=== PATIENT | female | born 1975 | race Caucasian/White ===

== ENCOUNTER → 2018-04-04 09:16 | Outpatient (CLI) | payer OTHER, SELFPAY ==
[2018-04-05 08:18] LABS: Strep Grp B PCR NEG for Grp B Strep
== END ==
PROVIDERS: PCP Family Medicine
DX: Z34.03 Encounter for supervision of normal first pregnancy, third trimester (principal); Z3A.36 36 weeks gestation of pregnancy
CPT/HCPCS: 87653

== ENCOUNTER 2018-04-12 12:19 | Outpatient (CLI) | payer OTHER, SELFPAY ==
[2018-04-12 12:56] LABS: Add Manual Diff / Slide Review NO; Basophils Percent Auto 0.7 % (0-2); Eosinophils Percent Auto 0.8 % (2-4); Hematocrit 36.7 % (36-46); Hemoglobin 12.2 g/dL (12.0-16.0); Lymphocytes Percent Auto 21.4 % (25-40); Mean Corpuscular HGB Conc 33.4 % (30-36); Mean Corpuscular Hemoglobin 31.3 PG (26-34); Mean Corpuscular Volume 93.7 fL (80-100); Monocytes Percent Auto 7.1 % (3-14); Neutrophils Absolute Auto 6300 /uL (3000-5900); Platelet Count 224 X10^3/uL (150-400); Red Blood Cell Count 3.91 X10^6/uL (4.0-5.2); Red Cell Distribution Width 14.3 % (11.6-14.8)
[2018-04-12 13:12] LABS: Alanine Aminotransferase 19 IU/L (9-52); Albumin 3.5 g/dL (3.5-5.0); Albumin Globulin Ratio 1.3 (1.0-2.8); Alkaline Phosphatase 160 U/L (38-126); Aspartate Aminotransferase 20 IU/L (14-36); BUN Creatinine Ratio 23.3 (6-22); Bilirubin Total 0.3 mg/dL (0.2-1.3); Blood Urea Nitrogen 14 mg/dL (7-17); Calcium 9.3 mg/dL (8.4-10.2); Carbon Dioxide 25 mmol/L (22-32); Chloride 103 mmol/L (98-107); Estimated Glomerular Filt Rate > 60.0 mL/min (>60); Globulin 2.8 g/dL (1.7-4.1); Glucose 118 mg/dL (70-100); HEMOLYSIS < 15 (0-50); Potassium 3.7 mmol/L (3.4-5.1); Sodium 136 mmol/L (137-145); Total Protein 6.3 g/dL (6.3-8.2); Uric Acid 5.2 mg/dL (2.5-6.2)
--- NOTE | 2018-04-12 13:18 | PM.OBTRLD ---
Visit Information Visit Information Date of evaluation: 04/12/18 Primary OB Provider: Shanae Valdivia Reason for Evaluation: Yes non-stress test and Yes other Comments/Additional reasons for admission: Advanced maternal age, gestational diabetes, rule out preeclampsia Vital Signs Vital Signs: Blood pressure 109/70, pulse is 74 PFSH Medical History IBS (irritable bowel syndrome) (Acute ~2004) Acne (Chronic ~2015) Carpal tunnel syndrome (Chronic ~2010) Chronic back pain (Chronic ~1992) Migraines (Chronic ~1985) Ovarian cyst (Chronic ~1991) Peptic ulcer disease (Chronic ~1992) Psoriasis (Chronic ~2016) Rosacea (Chronic ~2016) Chickenpox (Resolved ~1975) Surgical History History of foot surgery (Resolved) History of lymph node excision (Resolved ~1992) Anesthesia (Inactive) History of carpal tunnel repair (~2010) Status post appendectomy (~2004) Status post breast lumpectomy (~2005) Status post dilation and curettage (~2015) Family History Father Age: 76 High cholesterol Clogged artery (heart) Grandmother Hypertension Grandfather Cancer Sister Age: 47 Bulimia Grandfather No problems noted. Grandmother No problems noted. Social History household members: spouse pets and animals: Yes (Cat,) education level: college tiffany/sikh: Jainism seatbelt use: always working smoke detector in home: Yes fire extinguisher in home: Yes carbon monox detector in home: Yes firearms in home: No Smoking Status: Former smoker alcohol intake: current substance use type: does not use during the past year weight has: other well-balanced diet: daily or most days caffeine: Yes (1-2 caffeine drinks per day) eating out: rarely or never frequency: daily duration: 45-60 minutes/day Review of Systems Review of Systems Patient has been complaining of some intermittent scotomata. No headaches. Good movement, no rupture membranes, no regular contractions. All systems reviewed & are unremarkable except as noted in HPI and below Objective Labs Result Diagrams: 04/12/18 12:46 04/12/18 12:46 Labs: Laboratory Results - last 24 hr 04/12/18 04/12/18 12:46 12:46 WBC 9.0 RBC 3.91 L Hgb 12.2 Hct 36.7 MCV 93.7 MCH 31.3 MCHC 33.4 RDW 14.3 Plt Count 224 Neut % (Auto) 70.0 Lymph % (Auto) 21.4 L [place] % (Auto) 7.1 Eos % (Auto) 0.8 L Baso % (Auto) 0.7 Neut # (Auto) 6300 H Sodium 136 L Potassium 3.7 Chloride 103 Carbon Dioxide 25 BUN 14 Creatinine 0.60 Estimated GFR > 60.0 BUN/Creatinine Ratio 23.3 H Glucose 118 H Uric Acid 5.2 Calcium 9.3 Total Bilirubin 0.3 Conjugated Bilirubin 0.0 Unconjugated Bilirubin 0.0 AST 20 ALT 19 Alkaline Phosphatase 160 H Total Protein 6.3 Albumin 3.5 Globulin 2.8 Albumin/Globulin Ratio 1.3 Evaluation Evaluation Baseline heart rate: 130 Variability: Moderate (11-25) monitor accelerations: Present monitor decelerations: Absent Category of Tracing: I Cervical dilation (cm): 0 Laboratory results: Laboratory Tests 04/12/18 04/12/18 12:46 12:46 WBC 9.0 RBC 3.91 L Hgb 12.2 Hct 36.7 MCV 93.7 MCH 31.3 MCHC 33.4 RDW 14.3 Plt Count 224 Neut % (Auto) 70.0 Lymph % (Auto) 21.4 L [place] % (Auto) 7.1 Eos % (Auto) 0.8 L Baso % (Auto) 0.7 Neut # (Auto) 6300 H Sodium 136 L Potassium 3.7 Chloride 103 Carbon Dioxide 25 BUN 14 Creatinine 0.60 Estimated GFR > 60.0 BUN/Creatinine Ratio 23.3 H Glucose 118 H Uric Acid 5.2 Calcium 9.3 Total Bilirubin 0.3 Conjugated Bilirubin 0.0 Unconjugated Bilirubin 0.0 AST 20 ALT 19 Alkaline Phosphatase 160 H Total Protein 6.3 Albumin 3.5 Globulin 2.8 Albumin/Globulin Ratio 1.3 Diagnosis, Plan/Disposition Final Diagnosis (1) 37 weeks gestation of : Current Visit: Yes Status: Acute (2) Advanced maternal age (AMA), 40 years or greater: Current Visit: Yes Status: Acute (3) Gestational diabetes mellitus (GDM): Current Visit: Yes Status: Acute Plan/Disposition Plan: Reactive nonstress test, trace proteinuria, PIH labs within normal limits except for slightly elevated alkaline phosphatase at 160U/L. Patient was discharged home with precautions. She has an appointment in 1 week and induction scheduled on 04/22/2018
== END 2018-04-12 13:25 | disposition home or self-care (01) ==
LOC: LABOR 12:57 → OB 16:55
PROVIDERS: PCP Family Medicine; Visit Provider Specialist
DX: Z3A.37 37 weeks gestation of pregnancy (principal); O24.419 Gestational diabetes mellitus in pregnancy, unspecified control
CPT/HCPCS: 36415; 59025; 80053; 80076; 84550; 85025; G0378; G0379

== ENCOUNTER 2018-04-22 19:30 | Inpatient (IN) | payer OTHER, SELFPAY ==
--- NOTE | 2018-04-22 20:22 | P.HPOB_ITS ---
OB HPI Date/Time Date of admission: 04/22/18 Date Patient Seen: 04/22/18 Time Patient Seen: 20:20 History of Present Condition Chief complaint: eval of labor : 3 Para: 0 Estimated Date of Delivery: 04/28/18 Estimated Gestational Age (weeks): 39 Narrative: Trudi Ceja is a 42 year old female here for induction for term advanced maternal age and gestational diabetes diet controlled Indications Indication for induction OB: medical complication (Gestational diabetes, advanced maternal age) History of Present care: good care, initiated at week # (10), number of visits (11) and pounds weight gain (21) Dating criteria: LMP confirmed by 1st trimester US Ultrasounds: normal mid trimester US Obstetrical complications: gestational diabetes (Diet controlled) Medical complications: none Preadmission Labs Blood type: O (+) positive -: Antibody screen: negative, GBS status: negative, HBsAG: negative, HIV: negative, HSV 1: negative, HSV 2: negative and RPR/VDLR: negative -: Rubella: immune HCAB: negative Cell-free DNA: Normal, normal AFP 1 hr GTT: 180 3 hr GTT: 1 hr (183) Fasting blood glucose: 97 Evaluation Evaluation Baseline heart rate: 145 Variability: Moderate (11-25) monitor accelerations: Present monitor decelerations: Absent Contraction Frequency (minutes): 15 Uterine Contraction Intensity: Mild Category of Tracing: I Cervical dilation (cm): 0 Cervical effacement (%): 0 station: -4 PFSH Medical History IBS (irritable bowel syndrome) (Acute ~2004) Acne (Chronic ~2015) Carpal tunnel syndrome (Chronic ~2010) Chronic back pain (Chronic ~1992) Migraines (Chronic ~1985) Ovarian cyst (Chronic ~1991) Peptic ulcer disease (Chronic ~1992) Psoriasis (Chronic ~2016) Rosacea (Chronic ~2016) Chickenpox (Resolved ~1975) Surgical History History of foot surgery (Resolved) History of lymph node excision (Resolved ~1992) Anesthesia (Inactive) History of carpal tunnel repair (~2010) Status post appendectomy (~2004) Status post breast lumpectomy (~2005) Status post dilation and curettage (~2015) Family History Father Age: 76 High cholesterol Clogged artery (heart) Grandmother Hypertension Grandfather Cancer Sister Age: 47 Bulimia Grandfather No problems noted. Grandmother No problems noted. Social History household members: spouse pets and animals: Yes (Cat,) education level: college tiffany/restorationist: Judaism seatbelt use: always working smoke detector in home: Yes fire extinguisher in home: Yes carbon monox detector in home: Yes firearms in home: No Smoking Status: Former smoker alcohol intake: current substance use type: does not use during the past year weight has: other well-balanced diet: daily or most days caffeine: Yes (1-2 caffeine drinks per day) eating out: rarely or never frequency: daily duration: 45-60 minutes/day Meds Home Medications Medication Instructions Recorded Confirmed Type omeprazole 40 mg capsule,delayed 40 mg PO DAILY PRN #30 cap 10/25/17 Rx release blood sugar diagnostic strips #120 each 02/22/18 Rx blood-glucose meter kit #1 each 02/22/18 Rx lancets #120 each 02/22/18 Rx Allergies Allergy/AdvReac Type Severity Reaction Status Date / Time Quinolones [QUINOLONES] Allergy Severe ANAPHYLAXIS Unverified 10/04/17 12:36 codeine [CODEINE] Allergy Unknown Unverified 10/04/17 12:36 Review of Systems Review of Systems Patient denies headaches, scotomata, epigastric pain. She has had good movement. No rupture membranes. No contractions. She is having back pain. All systems reviewed & are unremarkable except as noted in HPI and below Exam Narrative Exam Narrative: HEENT within normal limits. Lungs are clear to auscultation percussion. Heart is regular rate and rhythm no S3-S4 or murmurs. Abdomen is soft, non tender. Gravid. Extremities without edema and are nontender. Estimated Weight (lbs): 8 Assessment and Plan (1) Gestational diabetes mellitus (GDM): Current visit: No Status: Acute (2) Advanced maternal age (AMA), 40 years or greater: Current visit: No Status: Acute (3) 39 weeks gestation of : Current visit: Yes Status: Acute Cytotec followed by Pitocin induction.
[2018-04-22] MEDS: miSOPROStol 25 MCG TABLET VAG (20:30)
[2018-04-22 21:59] VITALS: BP 129/75
[2018-04-22 22:23] LABS: Add Manual Diff / Slide Review NO; Basophils Percent Auto 1.1 % (0-2); Hematocrit 38.2 % (36-46); Mean Corpuscular Hemoglobin 31.9 PG (26-34); Mean Corpuscular Volume 93.6 fL (80-100); Monocytes Percent Auto 7.7 % (3-14); Neutrophils Absolute Auto 5200 /uL (3000-5900); Neutrophils Percent Auto 61.2 % (50-75); Platelet Count 203 X10^3/uL (150-400); Red Blood Cell Count 4.08 X10^6/uL (4.0-5.2); Red Cell Distribution Width 14.3 % (11.6-14.8); White Blood Cell Count 8.4 X10^3/uL (4.5-11.0)
[2018-04-22] MEDS: ZOLPIDEM 5 MG TABLET PO (22:41)
[2018-04-23] MEDS: miSOPROStol 25 MCG TABLET VAG (01:27)
[2018-04-23] MEDS: LACTATED RINGERS 1,000 ML 100 ML IV ×3 (08:21→10:44)
[2018-04-23] MEDS: fentaNYL 100 MCG/2 ML INJ IV (08:45)
[2018-04-23] MEDS: OXYTOCIN PREMIX 30 UNIT/500 ML PLAST..BAG IV (09:46)
--- NOTE | 2018-04-23 15:49 | PM.OBPRVD ---
Delivery date: 04/23/18 Induction method: per pitocin protocol Delivery augmentation: rupture of membranes and pitocin Delivery monitor: external FHT and external uterine Route of delivery: Laceration description: Perineal - 2nd Degree Delivery repair: chromic Estimated blood loss (mL): 200 Anesthesia type: Epidural Complications: None Narrative: The patient is a 42-year-old who was induced this morning with Pitocin. She had a rapid labor and came to complete and pushed for approximately 30 min and delivered spontaneously a live born male with scores eight at 1 min nine at 5 min in good condition. She sustained a second-degree perineal tear. The placenta delivered spontaneously. The cord had three vessels. The estimated blood loss was 200 cc. There were no cervical or vaginal lacerations. The tear was repaired with two 0 chromic suture in the usual fashion Plan for aftercare: Standard care
[2018-04-23] MEDS: IBUPROFEN 600 MG TABLET PO ×2 (18:15→23:57)
[2018-04-23] MEDS: DERMOPLAST SPRAY 20% 60 ML 1 SPRAY TOP (22:10)
[2018-04-23] MEDS: LANOLIN OINT 7 GM 1 APPLIC TOP (22:10)
[2018-04-23 23:57] VITALS: TEMP 36.7
[2018-04-23] MEDS: OXYCODONE/ACETAMINOPHEN 5/325 TABLET 1 TAB PO (23:57)
[2018-04-24 04:22] VITALS: TEMP 36.7
[2018-04-24] MEDS: OXYCODONE/ACETAMINOPHEN 5/325 TABLET 1 TAB PO ×4 (04:22→20:17)
[2018-04-24 05:59] VITALS: TEMP 36.7
[2018-04-24] MEDS: IBUPROFEN 600 MG TABLET PO ×3 (05:59→17:52)
[2018-04-24 07:07] LABS: Hematocrit 32.9 % (36-46); Hemoglobin 11.1 g/dL (12.0-16.0)
[2018-04-24] MEDS: DOCUSATE 250 MG CAPSULE PO (08:41)
[2018-04-24] MEDS: FERROUS GLUCONATE 324 MG TABLET PO (14:17)
--- NOTE | 2018-04-24 17:19 | PM.OBPN.1 ---
Subjective - OB Interval history: Patient is day #1 Vaginal delivery with second-degree tear repaired Patient comments: pain well controlled [place] baby status: doing well feeding status: exclusively breast feeding Date Patient Seen: 04/24/18 Time Patient Seen: 17:20 Exam Vital Signs (past 8 hours): Blood pressure 117/71, pulse 62, temperature 98.3? Narrative Exam Narrative: HEENT exam within normal limits. Lungs are clear to auscultation and percussion. Heart is regular rate and rhythm no S3-S4 or murmurs. Abdomen is soft, nontender. Uterus is firm, at U, nontender. At repair is intact. Mild lochia. Extremities with trace edema and nontender. Objective Labs Result Diagrams: 04/24/18 06:36 Labs: Laboratory Results - last 24 hr 04/24/18 06:36 Hgb 11.1 L Hct 32.9 L Assessment & Plan (1) Gestational diabetes mellitus (GDM): Status: Acute Current Visit: No (2) Advanced maternal age (AMA), 40 years or greater: Status: Acute Current Visit: No (3) 39 weeks gestation of : Status: Acute Current Visit: Yes (4) Vaginal delivery: Status: Acute Assessment and plan: Normal day #1. Doing well. Routine care. Current Visit: Yes Time Spent With Patient Total time spent is greater than 50% in coordination of care (as documented) at patient's floor/unit and/or counseling patient: less than 15 minutes
--- NOTE | 2018-04-24 17:22 | P.PNOB_ITS ---
Subjective - OB Interval history: Patient is day #1 Vaginal delivery with second- degree tear repaired Patient comments: pain well controlled baby status: doing well feeding status: exclusively breast feeding Date Patient Seen: 04/24/18 Time Patient Seen: 17:20 Exam Vital Signs (past 8 hours): Blood pressure 117/71, pulse 62, temperature 98.3? Narrative Exam Narrative: HEENT exam within normal limits. Lungs are clear to auscultation and percussion. Heart is regular rate and rhythm no S3-S4 or murmurs. Abdomen is soft, nontender. Uterus is firm, at U, nontender. At repair is intact. Mild lochia. Extremities with trace edema and nontender. Objective Labs Result Diagrams: 04/24/18 06:36 Labs: Laboratory Results - last 24 hr 04/24/18 06:36 Hgb 11.1 L Hct 32.9 L Assessment & Plan (1) Gestational diabetes mellitus (GDM): Status: Acute Current Visit: No (2) Advanced maternal age (AMA), 40 years or greater: Status: Acute Current Visit: No (3) 39 weeks gestation of : Status: Acute Current Visit: Yes (4) Vaginal delivery: Status: Acute Assessment and plan: Normal day #1. Doing well. Routine care. Current Visit: Yes Time Spent With Patient Total time spent is greater than 50% in coordination of care (as documented) at patient's floor/unit and/or counseling patient: less than 15 minutes
[2018-04-25] MEDS: IBUPROFEN 600 MG TABLET PO (08:38)
[2018-04-25] MEDS: DOCUSATE 250 MG CAPSULE PO (08:39)
[2018-04-25] MEDS: OXYCODONE/ACETAMINOPHEN 5/325 TABLET 1 TAB PO (10:14)
[2018-04-25] MEDS: DERMOPLAST SPRAY 20% 60 ML 1 SPRAY TOP (10:16)
[2018-04-25] MEDS: LANOLIN OINT 7 GM 1 APPLIC TOP (10:16)
--- NOTE | 2018-04-25 13:00 | P.DS_ITS ---
Discharge Providers Date of admission: 04/22/18 19:30 Primary care physician: Stormy Jordan MD Consults: 04/22/18 19:43 Consult to Anesthesiology Urgent Comment: Consulting Provider: Anesthesiologist Reason for consultation: Epidural Has provider been notified: No 04/22/18 19:45 Consult to Anesthesiology Urgent Comment: Consulting Provider: Anesthesiologist Reason for consultation: Epidural Has provider been notified: No 04/23/18 17:24 Consult to Flat Sorter Processor Routine Comment: Discharge provider: Shanae Valdivia MD Discharge Date: 04/25/18 Summary Date Patient Seen: 04/25/18 Time Patient Seen: 10:38 Hospital Course: Patient arrived on Labor and delivery for induction for gestational diabetes at 39 weeks she received Prostin followed by Pitocin. She received an epidural catheter for pain control. She progressed rapidly and delivered spontaneously a viable male infant weighing 7 lb 3 oz, 3280 g. she had a second-degree tear that was repaired. She had no signs or symptoms of preeclampsia. She was breast-feeding without difficulty. She was urinating and ambulatory. Bleeding was mild. Blood pressure 131/78, pulse 64, temperature 98.6? Abdomen is soft, nontender. Uterus is firm, at U, nontender. Repair is intact. Mild lochia. Extremities with trace edema and nontender. Patient's blood type is O positive and she is rubella immune. Peripartum Data Infant Delivery Method: Natural Vaginal Laceration description: Perineal - 2nd Degree Procedures: Prostin followed by Pitocin induction, epidural catheter, vaginal delivery, repair of second-degree tear complications: none Discharge Diagnosis (1) Gestational diabetes mellitus (GDM): Status: Acute (2) Advanced maternal age (AMA), 40 years or greater: Status: Acute (3) 39 weeks gestation of : Status: Acute (4) Vaginal delivery: Status: Acute Status at Discharge Functional status at discharge: independent ambulation Overall status at discharge: patient is progressing back to baseline Time Spent with Patient Total time spent providing and/or coordinating discharge services: Less than 30 minutes Objective Labs Result Diagrams: 04/24/18 06:36 Discharge Plan Discharge Plan Patient Disposition: Home Discharge Med Rec/Prescriptions Prescriptions: New oxycodone-acetaminophen 5-325 mg Tablet 1 tab PO Q4HR Qty: 20 RF: 0 ibuprofen 600 mg Tablet 600 mg PO Q6HR PRN (Reason: As Needed For Fever/Mild Pain) Qty: 30 RF: 0 docusate sodium 250 mg Capsule 250 mg PO DAILY Qty: 20 RF: 0 No Action blood sugar diagnostic [Blood Glucose Test] strip .ROUTE .MEDSUPPLY Qty: 120 RF: 4 lancets [Accu-Chek Softclix Lancets] misc .ROUTE .MEDSUPPLY Qty: 120 RF: 4 blood-glucose meter [Blood Glucose Monitoring] kit .ROUTE .MEDSUPPLY Qty: 1 RF: 0 omeprazole 40 mg capsule,delayed release(DR/EC) 40 mg PO DAILY PRN (Reason: heartburn) Qty: 30 RF: 0 Follow up/Referrals: Stormy Jordan MD [Primary Care Provider] - Shanae Valdivia MD [Physician] - 1 Month (Monday,April at 11:30am Clinic on Monday, at Noon (12:00 noon)) Provider Discharge Instructions Diet: Regular Activity: nothing in vagina for four weeks Skin/Wound/Dressing Care Report to your healthcare provider any signs of infection, such as:: chills, fever, increased pain and unusual drainage Visit Report/Discharge Packet Instructions: DI for Labor and Delivery, Vaginal Visit Report Forms: Stroke Signs & Symptoms Discharge Data Primary Care Provider: Stormy Jordan Attending Provider: Shanae Valdivia Admit Date/Time: 04/22/18 19:30 Discharges patient from system. Discharge Date/Time: 04/25/18 14:23
[2018-04-25 13:11] VITALS: BP 131/78; PULSE 64; RESP 16; TEMP 36.7
== END 2018-04-25 14:23 | disposition home or self-care (01) | DRG 807 ==
PROVIDERS: Admitting Provider Specialist; PCP Family Medicine; Visit Provider Specialist
DX: O24.420 Gestational diabetes mellitus in childbirth, diet controlled (principal); Z37.0 Single live birth; Z3A.39 39 weeks gestation of pregnancy; O70.1 Second degree perineal laceration during delivery
CPT/HCPCS: 01967; 36415; 59050; 59200; 59400; 59409; 85014; 85018; 85025; 86850; 86900; 86901; G0379; J2590; J3010

== ENCOUNTER → 2018-10-16 08:13 | Outpatient (CLI) | payer OTHER, SELFPAY ==
[2018-10-16 09:43] LABS: Glucose Fasting 97 mg/dL (70-100)
[2018-10-16 10:44] LABS: Glucose Tol Interpretation INTERPRETATION
[2018-10-16 11:00] LABS: Glucose 1 Hour 144 mg/dL (70-170)
[2018-10-16 11:25] LABS: Glucose 2 Hour 78 mg/dL (70-140)
== END ==
PROVIDERS: PCP Family Medicine; Visit Provider Specialist
DX: O24.419 Gestational diabetes mellitus in pregnancy, unspecified control (principal)
CPT/HCPCS: 36415; 82951; 82952

== ENCOUNTER → 2020-02-18 17:04 | Outpatient (CLI) | payer OTHER, SELFPAY ==
--- NOTE | 2020-02-18 17:23 | DI.MG.S_ITS ---
Patient Name: BREANN COHN date: 1975 Sex: F Attending Physician: Shea Indications: Date: 02/18/2020 17:16 At the request of: BETINA SUMMERS Procedure: MM screening mammo BI BILATERAL DIGITAL SCREENING MAMMOGRAM 3D/2D WITH CAD: 02/18/2020 CLINICAL: Routine screening. Comparison is made to exams dated: 04/06/2017 mammogram [facility] and 10/18/2013 mammogram - [facility]. The tissue of both breasts is heterogeneously dense. This may lower the sensitivity of mammography. Current study was also evaluated with a Computer Aided Detection (CAD) system. No significant masses, calcifications, or other findings are seen in either breast. There has been no significant interval change. IMPRESSION: NEGATIVE There is no mammographic evidence of malignancy. A 1 year screening mammogram is recommended. This exam was interpreted at Station ID: [id number]. NOTE: For mammograms, a report in lay terms will be sent to the patient. Approximately 15% of breast malignancies will not be visualized mammographically. In the management of a palpable breast mass, a negative mammogram must not discourage biopsy of a clinically suspicious lesion. Electronically Signed By: Avelino francisco/josé miguel:02/19/2020 09:03:29 copy to: GENE TERRELL letter sent: Normal Exam ACR BI-RADS Category 1: Negative 3341F
== END ==
PROVIDERS: PCP Family Medicine; Referring Provider Family Medicine; Visit Provider Family Medicine
DX: Z12.31 Encounter for screening mammogram for malignant neoplasm of breast (principal)
CPT/HCPCS: 77063; 77067

== ENCOUNTER → 2020-04-14 14:58 | Outpatient (CLI) | payer OTHER, SELFPAY ==
--- NOTE | 2020-04-14 | DI.MRI.S_ITS ---
PROCEDURE: MR LUMBAR SPINE WO CON INDICATIONS: Lumbago with sciatica, right side TECHNIQUE: Noncontrast sagittal T1 spin echo and T2 fast echo, sagittal STIR, axial T1 and T2 fast spin echo through the lumbar spine. In cases with scoliosis, additional coronal T2 fast spin echo may be performed. COMPARISON: None. FINDINGS: Image quality: Excellent. Alignment and Curvature: There is normal bony alignment. Bone Marrow: Marrow is of normal overall signal. No acute vertebral body compression fractures. Spinal Cord: Conus medullaris terminates at the L1 level. Visualized cord demonstrates normal signal and size. Paraspinous Soft Tissues: No paravertebral masses. T12-L1: No canal stenosis or foraminal stenosis. L1-L2: Minimal disc bulge. No canal stenosis or foraminal stenosis. L2-L3: No canal stenosis or foraminal stenosis. L3-L4: Mild facet hypertrophy. No canal stenosis or foraminal stenosis. L4-L5: Minimal disc bulge. Facet hypertrophy. No canal stenosis or foraminal stenosis. L5-S1: Chronic disc height loss. Posterior disc bulge. Facet hypertrophy. No canal stenosis. [id number] bilateral foraminal stenosis. IMPRESSION: 1. Multilevel facet arthropathy. 2. Multilevel disc bulges. 3. No canal stenosis. 4. Mild to moderate bilateral foraminal stenosis at L5-S1. Dictated by: Raúl Yang M.D. on 04/14/2020 at 16:23 Approved by: Raúl Yang M.D. on 04/14/2020 at 16:28
== END ==
PROVIDERS: PCP Family Medicine; Referring Provider Nurse Practitioner Family; Visit Provider Nurse Practitioner Family
DX: M51.17 Intervertebral disc disorders with radiculopathy, lumbosacral region (principal); M47.26 Other spondylosis with radiculopathy, lumbar region; M47.27 Other spondylosis with radiculopathy, lumbosacral region; M48.07 Spinal stenosis, lumbosacral region
CPT/HCPCS: 72148

== ENCOUNTER → 2021-06-08 10:48 | Outpatient (CLI) | payer OTHER, SELFPAY ==
--- NOTE | 2021-06-08 | DI.MG.S_ITS ---
BILATERAL DIGITAL SCREENING MAMMOGRAM 3D/2D WITH CAD: 06/08/2021 CLINICAL: Routine screening. Comparison is made to exams dated: 02/18/2020 mammogram, 04/06/2017 mammogram - [facility], and 10/18/2013 mammogram - [facility]. The tissue of both breasts is extremely dense, which lowers the sensitivity of mammography. Current study was also evaluated with a Computer Aided Detection (CAD) system. No significant masses, calcifications, or other findings are seen in either breast. There has been no significant interval change. IMPRESSION: NEGATIVE There is no mammographic evidence of malignancy. A 1 year screening mammogram is recommended. This exam was interpreted at Station ID: [id number]. NOTE: For mammograms, a report in lay terms will be sent to the patient. Approximately 15% of breast malignancies will not be visualized mammographically. In the management of a palpable breast mass, a negative mammogram must not discourage biopsy of a clinically suspicious lesion. Electronically Signed By: Eboni jose/josé miguel:06/08/2021 12:27:55 copy to: GENE TERRELL letter sent: Normal Exam ACR BI-RADS Category 1: Negative [id number]
== END ==
PROVIDERS: PCP Family Medicine; Referring Provider Family Medicine; Visit Provider Family Medicine
DX: Z12.31 Encounter for screening mammogram for malignant neoplasm of breast (principal)
CPT/HCPCS: 77063; 77067

== ENCOUNTER → 2022-06-22 10:31 | Outpatient (CLI) | payer OTHER, SELFPAY ==
--- NOTE | 2022-06-22 | DI.MG.S_ITS ---
BILATERAL DIGITAL SCREENING MAMMOGRAM 3D/2D WITH CAD: 06/22/2022 CLINICAL: Routine screening. Comparison is made to exams dated: 06/08/2021 mammogram, 02/18/2020 mammogram, and 04/06/2017 [facility]. Both breasts are extremely dense, which lowers the sensitivity of mammography (category d />75% glandular tissue). Current study was also evaluated with a Computer Aided Detection (CAD) system. No significant masses, calcifications, or other findings are seen in either breast. There has been no significant interval change. IMPRESSION: NEGATIVE There is no mammographic evidence of malignancy. A 1 year screening mammogram is recommended. Based on Tyrer-Cuzick model (a risk assessment model), the patient's lifetime risk is 24.7% and her 10 year risk is 5.6%. If a patient has an elevated risk, a more comprehensive evaluation should be considered and/or a referral to a genetic counselor. The [place] [employer], [place] [employer], and NCCN Guidelines advise the consideration of Breast MRI as an adjunct to screening mammography in patients whose Lifetime risk to develop breast cancer is 20% or higher. This exam was interpreted at Station ID: [id number]. NOTE: For mammograms, a report in lay terms will be sent to the patient. Approximately 15% of breast malignancies will not be visualized mammographically. In the management of a palpable breast mass, a negative mammogram must not discourage biopsy of a clinically suspicious lesion. Electronically Signed By: Sabas Concepcion M.D., jr/josé miguel:06/22/2022 13:09:10 copy to: GENE TERRELL letter sent: Normal Exam ACR BI-RADS Category 1: Negative 3341F
== END ==
PROVIDERS: PCP Family Medicine; Referring Provider Family Medicine; Visit Provider Family Medicine
DX: Z12.31 Encounter for screening mammogram for malignant neoplasm of breast (principal)
CPT/HCPCS: 77063; 77067

== ENCOUNTER → 2023-07-10 13:07 | Outpatient (CLI) | payer OTHER, SELFPAY ==
--- NOTE | 2023-07-10 | DI.MG.S_ITS ---
BILATERAL DIGITAL SCREENING MAMMOGRAM 3D/2D WITH CAD: 07/10/2023 CLINICAL: Routine screening. Comparison is made to exams dated: 06/22/2022 mammogram, 02/18/2020 mammogram, and 06/08/2021 mammogram - [facility]. Both breasts are extremely dense, which lowers the sensitivity of mammography (category d />75% glandular tissue). Current study was also evaluated with a Computer Aided Detection (CAD) system. There is a new oval asymmetry with an obscured, indistinct, and circumscribed margin in the left breast at 9 o'clock middle depth. No other significant masses, calcifications, or other findings are seen in either breast. IMPRESSION: INCOMPLETE: NEEDS ADDITIONAL IMAGING EVALUATION The new oval asymmetry in the left breast is indeterminate. Additional views with possible ultrasound are recommended. Based on Tyrer-Cuzick model (a risk assessment model), the patient's lifetime risk is 24.8% and her 10 year risk is 6.2%. If a patient has an elevated risk, a more comprehensive evaluation should be considered and/or a referral to a genetic counselor. The [place] [employer], [place] [employer], and NCCN Guidelines advise the consideration of Breast MRI as an adjunct to screening mammography in patients whose Lifetime risk to develop breast cancer is 20% or higher. This exam was interpreted at Station ID: [id number]. NOTE: For mammograms, a report in lay terms will be sent to the patient. Approximately 15% of breast malignancies will not be visualized mammographically. In the management of a palpable breast mass, a negative mammogram must not discourage biopsy of a clinically suspicious lesion. Electronically Signed By: Eboni jose/josé miguel:07/10/2023 15:05:30 copy to: Iain Solitario letter sent: Additional Imaging Needed ACR BI-RADS Category 0: Incomplete [id number]
== END ==
LOC: MAMMO 13:08
PROVIDERS: PCP Family Medicine; Referring Provider Family Medicine; Visit Provider Family Medicine
DX: Z12.31 Encounter for screening mammogram for malignant neoplasm of breast (principal); R92.343 Mammographic extreme density, bilateral breasts
CPT/HCPCS: 77063; 77067

== ENCOUNTER → 2023-07-27 12:09 | Outpatient (CLI) | payer OTHER, SELFPAY ==
--- NOTE | 2023-07-27 | DI.US.S_ITS ---
LIMITED ULTRASOUND OF LEFT BREAST: 07/27/2023 CLINICAL: Patient returns today to evaluate a focal asymmetry in the left breast. Comparison is made to exams dated: 07/27/2023 mammogram, 07/10/2023 mammogram, 06/22/2022 mammogram, 06/08/2021 mammogram, 02/18/2020 mammogram, and 04/06/2017 [facility] [place]. Color flow and real-time ultrasound of the left breast 9 o'clock region were performed. Coello scale images of the real-time examination were reviewed. There is a 1.6 cm x 2.6 cm x 1.2 cm micro cyst in the left breast at 9 o'clock middle depth 4 cm from the nipple. This correlates with mammography findings. On cines, there is a thick internal septation IMPRESSION: PROBABLY BENIGN The 1.6 cm x 2.6 cm x 1.2 cm micro cyst in the left breast is probably benign. A follow-up ultrasound in 6 months is recommended to demonstrate stability. Attention to the thick internal septation on followup. This exam was interpreted at Station ID: [id number]. Electronically Signed By: Miguel Walsh M.D. lc/:07/27/2023 13:08:11 letter sent: Followup Recommended Ultrasound BI-RADS: 3 Probably benign
--- NOTE | 2023-07-27 | DI.MG.S_ITS ---
UNILATERAL LEFT DIGITAL DIAGNOSTIC MAMMOGRAM 3D/2D WITH ADDITIONAL VIEWS: 07/27/2023 CLINICAL: Additional evaluation requested from prior study. Comparison is made to exams dated: 07/10/2023 mammogram, 06/22/2022 mammogram, and 06/08/2021 mammogram - [facility]. The left breast is extremely dense, which lowers the sensitivity of mammography (category d />75% glandular tissue). There is a 2 cm oval mass with a circumscribed margin in the left breast at 10 o'clock middle depth. No other significant masses or calcifications are seen in the breast. IMPRESSION: INCOMPLETE: NEEDS ADDITIONAL IMAGING EVALUATION The 2 cm oval mass in the left breast is indeterminate. An ultrasound is recommended. Based on Tyrer-Cuzick model (a risk assessment model), the patient's lifetime risk is 24.8% and her 10 year risk is 6.2%. If a patient has an elevated risk, a more comprehensive evaluation should be considered and/or a referral to a genetic counselor. The [employer], [employer], and NCCN Guidelines advise the consideration of Breast MRI as an adjunct to screening mammography in patients whose Lifetime risk to develop breast cancer is 20% or higher. This exam was interpreted at Station ID: [id number]. NOTE: For mammograms, a report in lay terms will be sent to the patient. Approximately 15% of breast malignancies will not be visualized mammographically. In the management of a palpable breast mass, a negative mammogram must not discourage biopsy of a clinically suspicious lesion. Electronically Signed By: Miguel Walsh M.D. lc/:07/27/2023 13:06:23 ACR BI-RADS Category 0: Incomplete [id number]
== END ==
LOC: MAMMO 12:10
PROVIDERS: PCP Family Medicine; Referring Provider Family Medicine; Visit Provider Family Medicine
DX: R92.8 Other abnormal and inconclusive findings on diagnostic imaging of breast (principal); R92.342 Mammographic extreme density, left breast; N60.02 Solitary cyst of left breast
CPT/HCPCS: 76642; 77065; G0279

== ENCOUNTER → 2023-12-13 08:39 | Outpatient (CLI) | payer OTHER, SELFPAY ==
[2023-12-13 10:05] LABS: Influenza A - CEPHEID Flu A NEGATIVE (NEGATIVE); Influenza B - CEPHEID Flu B NEGATIVE (NEGATIVE); Respiratory Syncytial Virus Negative (Negative)
[2023-12-13 10:08] LABS: COVID-19 CEPHEID 4-PLEX PCR Negative (Negative)
== END ==
PROVIDERS: PCP Family Medicine; Visit Provider Student in an Organized Health Care Education/Training Program
DX: R05.9 Cough, unspecified (principal)
CPT/HCPCS: 0241U

== ENCOUNTER → 2024-01-25 09:05 | Outpatient (CLI) | payer OTHER, SELFPAY ==
--- NOTE | 2024-01-25 09:06 | DI.US.S_ITS ---
LIMITED ULTRASOUND OF LEFT BREAST AND AXILLA: 01/25/2024 CLINICAL: 6mo f/u lt breast 09:00 4cmfn. Comparison is made to exams dated: 07/27/2023 ultrasound, 07/27/2023 mammogram, 07/10/2023 mammogram, 06/22/2022 mammogram, 06/08/2021 mammogram, and 02/18/2020 mammogram - [facility]. Color flow and real-time ultrasound of the left breast 9 o'clock, and axilla regions were performed. Coello scale images of the real-time examination were reviewed. There is a 2.7 cm x 0.3 cm x 1.9 cm cluster of oval simple cysts in the left breast at 9 o'clock middle depth 4 cm from the nipple. This cluster of oval simple cysts is anechoic. These abnormalities are increased in size. Color flow imaging demonstrates that there is no vascularity present. IMPRESSION: PROBABLY BENIGN The 2.7 cm x 0.3 cm x 1.9 cm cluster of oval simple cysts in the left breast is probably benign. Given high risk patient and increase in size, a follow-up left ultrasound in 6 months is recommended to demonstrate stability. The patient will be due for bilateral mammograms at that same visit. Findings and recommendations were conveyed to the patient at time of exam. This exam was interpreted at Station ID: [id number]. Electronically Signed By: Eboni jose/:01/25/2024 11:31:00 letter sent: Followup Recommended Ultrasound BI-RADS: 3 Probably benign
== END ==
PROVIDERS: PCP Family Medicine; Referring Provider Family Medicine; Visit Provider Family Medicine
DX: R92.8 Other abnormal and inconclusive findings on diagnostic imaging of breast (principal); N60.02 Solitary cyst of left breast
CPT/HCPCS: 76642

== ENCOUNTER → 2024-05-17 | Outpatient (CLI) | payer OTHER, SELFPAY ==
--- NOTE | 2024-05-17 | PATH_ITS ---
[facility] Accession Number: [id number] No. of containers..01 Tissue . 01 Material submitted: . breast - LEFT BREAST MASS 12:00 1CMFN . 01 Diagnosis: LEFT BREAST MASS AT 12 O'CLOCK, 1 CM FROM NIPPLE: Fragments of benign breast tissue with non-specific, benign cyst lining and cyst contents. Background fibrocystic changes consist of stromal fibrosis, cystic dilatation of terminal ductules, usual ductal hyperplasia, and adenosis. Negative for epithelial atypia or malignancy. MRV 05/21/2024 0834 Local . 01 Comment: This case was also reviewed by Dr. Sandra Meyer, who agrees with the interpretation. . 01 Electronically signed: . Abbie Watts MD, Pathologist NPI- [id number] . 01 Gross description: . Received in formalin with two identifiers and mass left breast 12 o'clock 1 cm FN, are multiple yellow to nunn soft tissue fragments admixed with hemorrhagic material aggregating to 2.6 x 1.5 x 0.3 cm. Filtered and submitted entirely in cassette A1. . The specimen was removed on 05/17/2024 at 1200 hours. Time in formalin not provided. Cold ischemic time cannot be calculated. Total fixation time is approximately 50 hours. ([id number])/ /FELIX 05/18/2024 1850 Local . 01 Pathologist provided ICD-10: N60.02 . 01 CPT . 269250 Performed at: [address] [id number] MD David Lieberman MD Phone: [phone]
--- NOTE | 2024-05-17 | DI.MG.S_ITS ---
UNILATERAL LEFT DIGITAL DIAGNOSTIC MAMMOGRAM 3D/2D POST-PROCEDURE IMAGING FOR MARKER PLACEMENT: 05/17/2024 CLINICAL: Post left breast ultrasound biopsy, clip placment imaging. Comparison is made to exams dated: 01/25/2024 ultrasound, 07/27/2023 ultrasound, 07/27/2023 mammogram, and 07/10/2023 mammogram - [facility]. The breasts are extremely dense, which lowers the sensitivity of mammography (category d />75% glandular tissue). There is a marker clip in the appropriate position in the left breast at 12 o'clock anterior depth. This marker clip placement is at the biopsy site. This correlates with ultrasound findings and the biopsy. IMPRESSION: POST PROCEDURE MAMMOGRAM FOR MARKER PLACEMENT There was a successful marker clip placement in the left breast anterior depth. Based on Tyrer-Cuzick model (a risk assessment model), the patient's lifetime risk is 24.8% and her 10 year risk is 6.2%. If a patient has an elevated risk, a more comprehensive evaluation should be considered and/or a referral to a genetic counselor. The [employer], [employer], and NCCN Guidelines advise the consideration of Breast MRI as an adjunct to screening mammography in patients whose Lifetime risk to develop breast cancer is 20% or higher. This exam was interpreted at Station ID: [id number]. NOTE: For mammograms, a report in lay terms will be sent to the patient. Approximately 15% of breast malignancies will not be visualized mammographically. In the management of a palpable breast mass, a negative mammogram must not discourage biopsy of a clinically suspicious lesion. Electronically Signed By: Avelino Sellers M.D. at/:05/18/2024 09:28:45 copy to: Iain Solitario ACR BI-RADS Category Post-Procedure Mammogram for Marker Placement
--- NOTE | 2024-05-17 | DI.US.S_ITS ---
ULTRASOUND GUIDED BIOPSY LEFT BREAST WITH MARKING DEVICE INSERTED AND POST MAMMOGRAPHIC IMAGIN05/17/2024 CLINICAL: Left breast mass. PATIENT CONSENT: Risks (minor bleeding, infection, vasovagal reaction and repeat procedure), benefits and alternatives were explained to the patient and written informed consent was obtained. Correlation is made to exams dated: 05/17/2024 mammogram, 01/25/2024 ultrasound, 07/27/2023 ultrasound, 07/27/2023 mammogram, 07/10/2023 mammogram, and 06/22/2022 mammogram - [facility]. An ultrasound guided biopsy using real-time ultrasound was performed for the 1.5 cm x 1.2 cm x 1.3 cm circumscribed oval mass located in the left breast at 12 o'clock anterior depth 1 cm from the nipple. The skin was prepped in the usual manner. Local anesthetic was administered to the access site. A skin manolo was made in the breast. The abnormality was approached from the lateral aspect. A 14 gauge biopsy needle was placed adjacent to the abnormality under ultrasound guidance. Once the needle was documented to be in the correct location, four specimens were obtained using BARD Elevation biopsy device. A clip was inserted into the biopsy cavity. A sterile dressing was applied to the access site. Post procedure mammographic imaging demonstrates the location device at the targeted area. The specimens were sent to the laboratory for pathological analysis. IMPRESSION: ULTRASOUND GUIDED BIOPSY BENIGN Ultrasound guided biopsy of the 1.5 cm x 1.2 cm x 1.3 cm mass in the left breast at 12 o'clock anterior depth 1 cm from the nipple was successful. Pathology indicates benign fragments of benign breast tissue with non-specific, benign cyst lining and cyst contents. Background fibrocystic changes consistent with stromal fibrosis, cystic dilation of terminal ductules, usual ductal hyperplasia, and adenosis. Pathology results are concordant with imaging findings. Recommend return to routine annual mammogram screening (due June 2024). This exam was interpreted at Station ID: [id number]. Avelino Jeffery M.D., Ph.D. [facility] [place]/:05/21/2024 17:29:32 copy to: Iain Solitario
--- NOTE | 2024-05-17 | PATH_ITS ---
Note [facility] Accession Number: [id number] TESTS RESULT FLAG UNITS REF RANGE LAB Clinician Provided Cytology Information No. of containers..01 Other (Miscellaneous) Source: LEFT BREAST CYST DIAGNOSIS: LEFT BREAST CYST, FINE NEEDLE ASPIRATION. NEGATIVE FOR MALIGNANT CELLS. FEW MACROPHAGES ARE PRESENT, MOST CONSISTENT WITH CYST CONTENTS. SCANT CELLULARITY. CLINICAL AND RADIOLOGIC CORRELATION IS RECOMMENDED. THIS INTERPRETATION INCLUDES EVALUATION OF A CELL BLOCK. Pathologist ICD10: N60.02 Signed out by: Dave Meyer MD, Pathologist NPI- [id number] Performed by: Alen Viera, Network Communications Engineer ([facility]) Gross description: 01 5 CC, BROWN, CLOUDY RECEIEVD FRESH IN 10ML SYRINGE YEE /PANCHITO 05/20/2024 [facility] Local FLAG LEGEND: L-Low Normal,H-High Normal,LL-Alert Low,HH-Alert High <-Panic Low,>-Panic High,A-Abnormal,AA-Critical Abnormal Performed at: 01 =Z [facility] [address], [place] [address] David Lieberman MD, Performed at: [address] [facility] [address], [place], [place] [id number] MD David Lieberman MD Phone: [phone]
--- NOTE | 2024-05-17 09:32 | DI.US.S_ITS ---
MULTIPLE ULTRASOUND GUIDED ASPIRATIONS LEFT BREAST WITH POST ULTRASOUND IMAGIN05/17/2024 CLINICAL: Cyst aspiration left breast. Correlation is made to exams dated: 05/17/2024 mammogram, 01/25/2024 ultrasound, 07/27/2023 ultrasound, 07/27/2023 mammogram, 07/10/2023 mammogram, and 06/22/2022 mammogram - [facility]. Aspiration performed for the largest cyst of an area of multiple lobulated cysts located in the left breast superior medial quadrant anterior depth. The skin was prepped in the usual manner. Local anesthetic was administered to the access site. The abnormalities were approached from the lateral aspect. An 18 gauge needle was percutaneously placed into each abnormality under ultrasound guidance. Once the needle was documented to be in the correct location, 5 cc of opaque green fluid was aspirated. A sterile dressing was applied to the access site. Post procedure ultrasound imaging demonstrates the abnormalities to be no longer visible. The aspirated fluid was sent for cytological analysis. IMPRESSION: ASPIRATION Aspiration of the largest cyst of an area of multiple cysts in the left breast superior medial quadrant anterior depth was successful. Post ultrasound imaging revealed the abnormalities to be no longer visible. Waiting for pathology results. A final report will be issued when these become available. This exam was interpreted at Station ID: [id number]. Avelino Sellers M.D. aty/:05/18/2024 09:27:50 copy to: Iain Solitario
== END ==
PROVIDERS: PCP Family Medicine; Referring Provider Family Medicine; Visit Provider Family Medicine
DX: N60.02 Solitary cyst of left breast (principal); N60.32 Fibrosclerosis of left breast; N60.22 Fibroadenosis of left breast; R92.343 Mammographic extreme density, bilateral breasts
CPT/HCPCS: 10005; 19083; 77065

== ENCOUNTER → 2025-06-20 12:15 | Outpatient (CLI) | payer OTHER, SELFPAY ==
--- NOTE | 2025-06-20 12:15 | DI.MG.S_ITS ---
MM screening mammo BI: 06/20/2025. BI-RADS: 2 CLINICAL: 49-year old female for bilateral screening mammogram. Tyrer-Cuzick lifetime risk of 22.1%. No personal or first-degree family history of breast cancer. The patient had a prior right breast biopsy. PRIOR EXAMS 05/17/2024, 07/10/2023, 06/22/2022, 06/08/2021. MAMMOGRAPHY TECHNIQUE: 2D and 3D (tomosynthesis) digital mammographic views obtained, with additional images as needed for full coverage. Current study was also evaluated with a Computer Aided Detection (CAD) system. DENSITY D. The breasts are extremely dense, which lowers the sensitivity of mammography. MAMMOGRAPHY FINDINGS Right: No suspicious mass, asymmetry, microcalcification, or other abnormality seen. Left: Biopsy marker present on the left. There are no suspicious masses, calcifications, or other findings in the breast. IMPRESSION: Right * No evidence of malignancy. Left * No evidence of malignancy with benign findings. RECOMMENDATIONS Bilateral * According to the Tyrer-Cuzick Risk Assessment Model, based on the information provided your patient has a greater than 20% lifetime risk for developing breast cancer. Consider supplemental screening with breast MRI and participation in a high risk screening program. * Annual screening mammography. OVERALL ASSESSMENT CATEGORY BI-RADS-2: Benign. The [employer] recommends annual screening mammography beginning at age 40 for women with average risk of breast cancer. ELECTRONICALLY SIGNED: Constance Caraballo M.D. on 06/20/2025 at 05:07:40 PM PT Interpreting Station ID: [id number]
--- NOTE | 2025-06-20 12:16 | DI.MRI.S_ITS ---
MR breast BI wo/w con: 06/20/2025. BI-RADS: 3 CLINICAL: 49-year old female for bilateral diagnostic breast MRI. No personal or first-degree family history of breast cancer. The patient had a prior right breast excisional biopsy as well as a core biopsy of the left breast with biopsy marker in place. PRIOR EXAMS: Mammogram(s): 06/20/2025. 12 Other Exams on 05/17/2024, 01/25/2024, 07/27/2023, 07/10/2023, 06/22/2022, 06/08/2021, 02/18/2020, 04/06/2017. MRI TECHNIQUE: Bilateral breast MRI was performed on a 1.5 Kimberlyn magnet using a dedicated breast coil with mild compression. Axial T1 and T2 STIR sequences were obtained. Dynamic contrast enhanced VIBRANT fat-suppressed sequences were obtained. Delayed sagittal high resolution or sagittal reconstructed isotropic sequence was also obtained. Subtraction images and maximum intensity projection images were obtained. The study was evaluated using Schedule Savvy software. IV Contrast: 20 ml ProHance. FIBROGLANDULAR TISSUE Bilateral: D. Extreme fibroglandular tissue. BACKGROUND PARENCHYMAL ENHANCEMENT Bilateral: Marked symmetrical background parenchymal enhancement. BREAST FINDINGS Right: Lower at 6:00, (Sagittal S:12/I:60), (Axial S:6/I:58), Middle depth, measuring 1 x 0.6 x 0.9cm: There is non-mass enhancement in focal distribution with kinetic enhancement curve showing fast initial phase and persistent pattern on delayed phase. No other suspicious mass, non-mass enhancement, or architectural distortion. No axillary or internal mammary chain adenopathy. No skin or nipple abnormalities seen. Scattered breast cysts are noted. Left: Multiple scattered left breast cysts. No other suspicious mass, non-mass enhancement, or architectural distortion. No axillary or internal mammary chain adenopathy. No skin or nipple abnormalities seen. CHEST FINDINGS Visualized portions of the chest appear unremarkable. ABDOMEN FINDINGS Visualized portions of the upper abdomen appear unremarkable. IMPRESSION: Right (Non-Mass): Lower at 6:00, (Sagittal S:12/I:60), (Axial S:6/I:58), Middle depth, measuring 1 x 0.6 x 0.9cm * Probably Benign. Left * No evidence of malignancy with benign findings. RECOMMENDATIONS Right: Lower at 6:00, Middle depth * Further evaluation with diagnostic ultrasound (This focal non-mass enhancement has no mammographic correlate and likely represents a focus of dense fibroglandular tissue/prominent background parenchymal enhancement.). * Second-look ultrasound. If there is no ultrasound correlate, six-month breast MRI would be recommended. OVERALL ASSESSMENT CATEGORY BI-RADS-3: Probably Benign. ELECTRONICALLY SIGNED: Avelino Sellers M.D. on 06/23/2025 at 10:49:02 AM PT Interpreting Station ID: [id number]
== END ==
LOC: MRI 12:15
PROVIDERS: PCP Family Medicine; Referring Provider Family Medicine; Visit Provider Family Medicine
DX: Z12.31 Encounter for screening mammogram for malignant neoplasm of breast (principal); N64.89 Other specified disorders of breast; R92.343 Mammographic extreme density, bilateral breasts; N60.01 Solitary cyst of right breast; N60.02 Solitary cyst of left breast
CPT/HCPCS: 77049; 77063; 77067; A9579